=== PATIENT | male | born 1985 | race Caucasian/White ===

== ENCOUNTER 2020-05-23 21:57 | Emergency (ER) | payer OTHER | END 2020-05-24 00:20 | disposition home or self-care (01) | LOC: ED 21:57 | DX: S61.214A Laceration without foreign body of right ring finger without damage to nail, initial encounter (principal); Z88.0 Allergy status to penicillin; W22.8XXA Striking against or struck by other objects, initial encounter; Y93.89 Activity, other specified; Y92.89 Other specified places as the place of occurrence of the external cause; Y99.8 Other external cause status ==